=== PATIENT | male | born 1970 | race Caucasian/White ===

== ENCOUNTER 2024-01-28 10:56 | Day surgery (SDC) | payer OTHER, SELFPAY ==
[2024-01-28] VITALS (9 sets, daily range): BP systolic 127–143; BP diastolic 80–104; PULSE 77–114; RESP 14–18; TEMP 36.6–36.9; O2SAT 99–100
--- NOTE | ~2024-01-28 | CT_ITS ---
EXAMINATION: CT pelvis w con DATE: 01/28/2024 12:43 INDICATION: Left perirectal abscess. TECHNIQUE: Computed tomography (CT) of the pelvis was performed with 100 mL Omnipaque 350 intravenous contrast. Automated exposure control and iterative reconstruction technique were employed. The dose- length product was 700.97 mGy-cm. COMPARISON: None FINDINGS: There are cysts in the kidneys measuring up to 8.2 cm on the left. There are no dilated loo ps of bowel. The appendix is normal. There is diverticulosis of the colon without evidence of diverti culitis. There is a 4.7 x 2.6 x 5.6 cm left perianal abscess. There is calcified atherosclerosis of t he aorta and many of the other arteries. There are no pathologically enlarged lymph nodes. There is n o free intraperitoneal fluid. There is mild osteoarthritis of the hips. IMPRESSION: 1. 4.7 x 2.6 x 5.6 cm left perianal abscess. Reviewed, dictated and finalized at location A.
--- NOTE | 2024-01-28 11:18 | ED.SKABFB ---
HPI - Skin/Abscess/Foreign Bdy General Chief complaint: Skin/Abscess/Foreign Body <JOSELUIS Burks Last Filed: 01/28/24 14:32> Stated complaint: abcess to buttocks <JOSELUIS Burks Filed: 01/28/24 14:32> Time Seen by Provider: 01/28/24 11:11 <JOSELUIS Burks Last Filed: 01/28/24 14:32> Source: patient and old records reviewed <JOSELUIS Burks Filed: 01/28/24 14:32> Mode of arrival: ambulatory <JOSELUIS Burks Filed: 01/28/24 14:32> Limitations: no limitations <JOSELUIS Burks Filed: 01/28/24 14:32> History of Present Illness HPI narrative: Patient is a 53 y/o female who presents to the ED with c/o concern for perirectal abscess. Patient reports history of a left-sided perirectal abscess that required surgical I & D by Dr. Cabrera in 2017. Since Thursday, he reported feeling constipated. He tried taking laxatives, increasing fiber, and used an enema with some relief. He has since had several bowel movements, but began noticing an area of induration and tenderness to his left-sided perirectal region, which felt similar to his previous abscess. Has pain sitting down. Denies abdominal pain, nausea, vomiting, fevers, rectal bleeding, melena. <JOSELUIS Burks Last Filed: 01/28/24 14:32> Related Data Home medications: Home Medications Medication Instructions Recorded Confirmed amlodipine 5 mg tablet 5 mg PO DAILY 01/28/24 01/28/24 lisinopril 40 mg tablet 40 mg PO DAILY 01/28/24 01/28/24 sertraline 50 mg tablet 50 mg PO DAILY 01/28/24 01/28/24 <JOSELUIS Burks Last Filed: 01/28/24 14:32> Allergies/Adverse reactions: Allergies Allergy/AdvReac Type Severity Reaction Status Date / Time shellfish derived Allergy Swelling Verified 01/28/24 15:00 <Laura Paz PA-C - Last Filed: 01/28/24 14:32> Review of Systems Review of Systems: CONSTITUTIONAL: Denies fever, chills, or sweats. GASTROINTESTINAL: See HPI. GENITOURINARY: Denies dysuria or hematuria. <JOSELUIS Burks Last Filed: 01/28/24 14:32> All systems reviewed & are unremarkable except as noted in HPI and below <JOSELUIS Burks Last Filed: 01/28/24 14:32> [facility] Past Medical History Medical History: Medical History Anxiety GERD (gastroesophageal reflux disease) Hypertension Perirectal abscess 2017 <JOSELUIS Burks Last Filed: 01/28/24 14:32> Surgical History Surgical History: Surgical History History of incision and drainage Incision and drainage left perirectal abscess by Dr. Cabrera in 2017 <JOSELUIS Burks Last Filed: 01/28/24 14:32> Social History Social History: Social History Smoking status: Never smoker Alcohol intake: current <JOSELUIS Burks Last Filed: 01/28/24 14:32> Exam Narrative: GENERAL: Well appearing, obese with BMI of 31.1, non-toxic, in no acute distress. HEAD: Normocephalic, atraumatic. RESPIRATORY: Airway patent, respirations nonlabored. Clear to auscultation bilaterally, no rales, rhonchi, wheezing. CARDIOVASCULAR: Borderline tachycardic with regular rhythm without murmurs, rubs, or gallops. ABDOMINAL: Soft, no tenderness throughout abdomen, nondistended. Normoactive BS. RECTAL: Area of induration, erythema, tenderness to left sided perirectal region, in location of 9oclock in relation to anus. No significant palpable fluctuance, no drainage or bleeding. No large external hemorrhoids. MUSCULOSKELETAL: Moves all extremities. No gross deformities. SKIN: Warm, dry, normal color. NEURO: A&O X3. Speech clear. PSYCHIATRIC: Appropriate mood and affect. Normal interaction. <Laura Paz PA-C -
[2024-01-28 12:05] LABS: Basophils Percent Auto 0.2 % (0.2-1.2); Eosinophils Percent Auto 0.4 % (0-4.4); Hematocrit 46.3 % (42.0-52.0); Hemoglobin 15.5 g/dL (14.0-18.0); Immature Granulocyte Absolute 0.07 K/mm3 (0.00-0.031); Immature Granulocyte Percent A 0.7 % (0-0.5); Lymphocytes Absolute Auto 0.69 K/mm3 (0.9-3.2); Lymphocytes Percent Auto 7.3 % (18.3-44.2); Mean Corpuscular HGB Conc 33.5 g/dl (32-36); Mean Corpuscular Hemoglobin 31.4 pg (26-34); Mean Corpuscular Volume 93.9 fl (80-100); Monocytes Absolute Auto 0.8 K/mm3 (0.1-0.6); Monocytes Percent Auto 8.9 % (2.6-8.5); Neutrophils Absolute Auto 7.8 K/mm3 (1.3-6.7); Neutrophils Percent Auto 82.5 % (45.5-73.1); Platelet Count Result 171 k/mm3 (150-375); Red Blood Count 4.93 M/mm3 (4.6-6.20); Red Cell Distribution Width 12.3 % (11.5-14.5); White Blood Count 9.5 K/mm3 (4.5-10.0)
[2024-01-28 12:17] LABS: Alanine Aminotransferase 32 U/L (6-50); Albumin Level 4.4 g/dL (3.5-5.1); Alkaline Phosphatase 82 U/L (38-126); Anion Gap 5 mmol/L (4-12); Aspartate Amino Transferase 31 U/L (17-59); Bilirubin,Total 1.4 mg/dL (0.2-1.3); Blood Urea Nitrogen 7 mg/dL (9-20); Calcium 9.5 mg/dL (8.4-10.2); Carbon Dioxide 28 mmol/L (22-30); Chloride 100 mmol/L (98-107); Estimated CRCL calculation 131 ml/min; Estimated Glomerular Filt Rate > 60; Glucose 107 mg/dL (65-110); Lactic Acid Reflex 1.3 mmol/L (0.7-2.0); Sodium 133 mmol/L (137-145)
[2024-01-28] MEDS: PIPERACILLN/TAZ 3.375GM/NS50ML 3.375 GM/50 ML BAG IVPB (14:08)
--- NOTE | 2024-01-28 14:33 | PM.SD2 ---
Same Day Admit/Disch: [facility] History of Present Illness Chief complaint: Perianal abscess Narrative: Herberth Wei is a 53 year old male who presented to the ER with complaints of perirectal pain and swelling. He has a history of perirectal abscess with incision and drainage in the OR in [address] Cabrera. He has not had any issues since that time until now. He reports feeling constipated since Thursday. He tried taking laxatives and an enema, and was able to have multiple bowel movements. He following this, he started to notice some left-sided perirectal pain that progressively worsened. Yesterday, he began noticing some left-sided perirectal swelling as well. He was having pain with sitting. No fever or chills. No rectal drainage or bleeding that he had noticed. His symptoms felt similar to his previous perirectal abscess and he came into the ER for evaluation. Labs showed a normal WBC count with neutrophil predominance. Pelvis CT showed a 4.7 x 2.6 x 5.6 cm left perianal abscess. Our service was consulted by the ED physician and he is now seen in the ER. [facility] Past Medical History Medical History Anxiety GERD (gastroesophageal reflux disease) Hypertension Perirectal abscess 2016 Surgical History Surgical History History of incision and drainage Incision and drainage left perirectal abscess by Dr. Cabrera in 2017 Social History Social History Smoking status: Never smoker Alcohol intake: current Review of Systems Review of Systems All systems reviewed & are unremarkable except as noted in HPI and below Constitutional Constitutional: Reports no additional constitutional complaints, Denies chills, Denies fatigue and Denies fever(s) Eyes Eyes: Reports no additional eye complaints ENT Reports system reviewed and no additional complaints, except as documented and Denies dizziness Cardiovascular Cardiovascular: Reports no additional cardiovascular complaints, Denies chest pain and Denies leg edema Respiratory Respiratory: Reports no additional respiratory complaints, Denies cough and Denies dyspnea Gastrointestinal Gastrointestinal: Reports as per HPI, Reports no additional gastrointestinal complaints, Denies abdominal pain, Denies melena, Denies hematochezia, Denies diarrhea, Denies nausea, Denies vomiting and Reports other (perirectal pain and swelling) Genitourinary Genitourinary: Reports no additional male genitourinary complaints and Denies dysuria Musculoskeletal Musculoskeletal: Reports no additional musculoskeletal complaints, Denies abnormal gait and Denies joint swelling Integumentary/Breasts Skin/Breast: Reports system reviewed and no additional complaints, except as docu Neurologic Reports system reviewed and no additional complaints, except as documented, Denies headache(s), Denies focal weakness, Denies numbness and Denies tingling Exam Const: General: comfortable and no acute distress Nutritional Appearance: average body habitus Orientation/consciousness: patient oriented x3 HENMT: Head: normocephalic and atraumatic Ears: hearing grossly normal bilaterally Mouth: Yes moist mucous membranes Eyes: General: appearance normal, both eyes and all related structures Pupils: Equal, round and reactive pupils present Neck: Neck: normal visual inspection and full ROM Resp: Effort & Inspection: no respiratory distress Auscultation: clear to auscultation bilaterally Cardio: Rate: regular rate Rhythm: regular rhythm Heart sounds: S1 normal heart sound present and S2 normal heart sound present Peripheral pulses: Peripheral pulses 2+ throughout GI: Inspection: non-distended GI Palp: Yes Soft to palpation, No Tenderness to palpation present (GI), No Guarding due to palpation present (GI) and No Rebound tenderness present Percussion: Yes normal to percussion Auscultati
--- NOTE | 2024-01-28 15:44 | WPDANESEPPF ---
Anes - Initial Pre Proc Eval Procedure: Operation Date: 01/28/24 15:00 Proposed Procedures p Incision And Drainage Charu-Rectal Abscess - Ortiz Valladares MD Date/Time: 01/28/24 15:44 Surgeon: Ortiz Valladares MD Pre Op Diagnosis: abcess to buttocks Patient Data Age: 53 Gender: M Height: 1.83 m Weight: 104 kg Last Vital Signs Temp 98.1 F 01/28/24 14:55 Pulse 89 01/28/24 14:55 Resp 14 01/28/24 14:55 BP 143/93 H 01/28/24 14:55 Pulse Ox 100 01/28/24 14:55 O2 Del Method Room Air 01/28/24 14:55 Allergies Allergy/AdvReac Type Severity Reaction Status Date / Time shellfish derived Allergy Swelling Verified 01/28/24 15:00 Home Medications Medication Instructions Recorded Confirmed Type amlodipine 5 mg tablet 5 mg PO DAILY 01/28/24 01/28/24 History lisinopril 40 mg tablet 40 mg PO DAILY 01/28/24 01/28/24 History sertraline 50 mg tablet 50 mg PO DAILY 01/28/24 01/28/24 History Laboratory Tests 01/28/24 11:54 WBC 9.5 K/mm3 (4.5-10.0) RBC 4.93 M/mm3 (4.6-6.20) Hgb 15.5 g/dL (14.0-18.0) Hct 46.3 % (42.0-52.0) MCV 93.9 fl (80-100) MCH 31.4 pg (26-34) MCHC 33.5 g/dl (32-36) RDW 12.3 % (11.5-14.5) Plt Count 171 k/mm3 (150-375) MPV 9.0 fl (7.4-10.4) Immature Gran % (Auto) 0.7 H % (0-0.5) Neut % (Auto) 82.5 H % (45.5-73.1) Lymph % (Auto) 7.3 L % (18.3-44.2) [place] % (Auto) 8.9 H % (2.6-8.5) Eos % (Auto) 0.4 % (0-4.4) Baso % (Auto) 0.2 % (0.2-1.2) Lymph # (Auto) 0.69 L K/mm3 (0.9-3.2) [place] # (Auto) 0.8 H K/mm3 (0.1-0.6) Eos # (Auto) 0.0 K/mm3 (0-0.3) Baso # (Auto) 0.0 K/mm3 (0.0-0.1) Abs Immat Gran (auto) 0.07 H K/mm3 (0.00-0.031) Absolute Neuts (auto) 7.8 H K/mm3 (1.3-6.7) Absolute Nucleated RBC 0.000 K/mm3 (0.0-0.012) Nucleated RBC % 0.0 % (0.0-0.2) Sodium 133 L mmol/L (137-145) Potassium 4.0 mmol/L (3.4-5.0) Chloride 100 mmol/L (98-107) Carbon Dioxide 28 mmol/L (22-30) Anion Gap 5 mmol/L (4-12) BUN 7 L mg/dL (9-20) Creatinine 0.70 mg/dL (0.7-1.3) Estim Creat Clear Calc 131 ml/min Estimated GFR > 60 (59 - ) Glucose 107 mg/dL (65-110) Lactic Acid 1.3 mmol/L (0.7-2.0) Calcium 9.5 mg/dL (8.4-10.2) Total Bilirubin 1.4 H mg/dL (0.2-1.3) AST 31 U/L (17-59) ALT 32 U/L (6-50) Alkaline Phosphatase 82 U/L (38-126) Total Protein 8.0 g/dL (6.3-8.2) Albumin 4.4 g/dL (3.5-5.1) Patient hx anesthesia problems: none Family hx anesthesia problems: none Results Review: All pre-operative results and documents have been reviewed as part of the pre-operative evaluation. [facility] Past Medical History Medical History Anxiety GERD (gastroesophageal reflux disease) Hypertension Perirectal abscess 2017 Surgical History Surgical History History of incision and drainage Incision and drainage left perirectal abscess by Dr. Cabrera in 2017 Social History Social History Smoking status: Never smoker Alcohol intake: current Anes - Eval Final PreProcedure Day of Procedure 01/28/24 15:44 Patient weight: obese Heart: regular rate and rhythm Lungs: clear to auscultation Airway: Mallampati scale Neurological: alert and oriented Last oral intake: >/= 8 hours ASA classification: II Emergent: yes Anesthetic plan: delay Anesthesia type and monitoring: general and standard monitoring Other findings: HTN, pt took ACEI and CCB this am. Results Review: All pre-operative results and documents have been reviewed as part of the pre-operative evaluation. Informed Consent: The patient's anesthetic plan and its attendant risks and benefits were discussed with the patient/family/POA. Que
--- NOTE | 2024-01-28 15:54 | WPDHPUPDATE1 ---
History and Physical Update Update Date/Time: 01/28/24 15:54 History and Physical has been reviewed, including an updated exam of the patient. There are NO changes in the patient's condition. Risks, benefits, and alternatives have been discussed and questions answered. Patient agrees to proceed with procedure.
[2024-01-28] MEDS: LACTATED RINGERS 1,000 ML 30 ML IV CONT (16:45)
--- NOTE | 2024-01-28 16:59 | W.PM.PROC2 ---
Procedure Note - Detailed Date of Procedure 01/28/24 Pre-op Diagnosis Recurrent perirectal abscess Post-op Diagnosis Same Procedure Performed Incision and drainage complex perirectal abscess Surgeon Ortiz Valladares MD [employer] General Supervisor [place] [facility] Anesthesia General Indications Patient presented to the emergency room today with severe perianal pain and evidence of an abscess on the left side of the rectum. Looking back at old records, he had a left-sided deep perirectal abscess in 2017. His CT scan showed a very large deep abscess on the left side. He is taken to surgery now for incision and drainage. Findings The abscess was deep to the skin and by palpation there really was not much of a fluctuant collection to palpate. Once into the abscess, there was a large amount of dark brown purulent fluid with foul odor. I looked several times but could not find an internal opening. Description of Procedure Patient was taken to surgery and induced into general anesthesia. He was then turned prone and placed in prone hermelinda-knife position. The buttocks were taped apart. Prep and drape was carried out. I initially looked in the anal canal with 1st a small Hill-Sharp anoscope and then a medium Hill-Sharp anoscope. Rectal sphincter tone was increased. Despite looking specifically for an internal opening, none was found. I then used a syringe with a large-bore needle and aspirated over the area that was suspicious for abscess. Significant purulent fluid was aspirated. I then made a cruciate incision over this and used a curved clamp to dissect down to the abscess. The cavity was large and went proximal on the left side of the rectum. All the purulent fluid was suctioned away. I enlarged the opening enough that I could put my finger into the abscess cavity. I then replaced Hill-Sharp anoscope was in the rectum and again searched for an internal opening. I turned the probe back on itself and tried to probe for an internal opening. None was found. I irrigated the abscess cavity thoroughly with saline. I then placed an 18 Vietnamese mushroom catheter into the abscess cavity. It was sutured in place with a 2-0 silk suture. I cut off all but about 2 cm of the mushroom catheter protruding above the suture. Cautery was used for some skin and subcutaneous bleeders. We then dressed the wound with Xeroform gauze bulky fluffs and ABDs. Medipore tape and Promise panties were then placed. Patient was then returned to a supine position, awakened and extubated. He was taken to recovery in good condition. Estimated Blood Loss -5 Drains Yes (Mushroom catheter in left-sided abscess cavity) Packing No Pathology None sent Complications No immediate complications Condition Stable Disposition PACU [facility] Billing Surgery - Charge Forward: Surgery Billing (Incision and drainage recurrent complex perirectal abscess)
== END 2024-01-28 18:01 | disposition home or self-care (01) ==
LOC: ANHED 14:07 → ANHSURGERY 14:24
PROVIDERS: Emergency Provider Physician Assistant; Visit Provider Surgery
PROC: (CPT 46040; principal; 2024-01-28 15:00)
DX: K61.1 Rectal abscess (principal); E66.9 Obesity, unspecified; Z68.31 Body mass index [BMI] 31.0-31.9, adult
CPT/HCPCS: 46040; 36415; 72193; 80053; 83605; 85025; 96374; 99285; J0330; J1100; J2250; J2371; J2405; J2543; J2704; J3010; J7120; Q9967

== ENCOUNTER 2024-12-25 09:55 | Day surgery (SDC) | payer BC, SELFPAY ==
[2024-12-25] VITALS (9 sets, daily range): BP systolic 128–149; BP diastolic 85–96; PULSE 86–103; RESP 16–19; TEMP 36.5–37.1; O2SAT 95–100
[2024-12-25 11:43] LABS: Basophils Percent Auto 0.2 % (0.2-1.2); Eosinophils Percent Auto 0.5 % (0-4.4); Hematocrit 41.3 % (42.0-52.0); Hemoglobin 13.9 g/dL (14.0-18.0); Immature Granulocyte Absolute 0.02 K/mm3 (0.00-0.031); Immature Granulocyte Percent A 0.2 % (0-0.5); Immature Platelet Fraction Pct 1.8 % (0.9-11.2); Lymphocytes Percent Auto 4.7 % (18.3-44.2); Mean Corpuscular HGB Conc 33.7 g/dl (32-36); Mean Corpuscular Hemoglobin 30.9 pg (26-34); Mean Corpuscular Volume 91.8 fl (80-100); Mean Platelet Volume 9.2 fl (7.4-10.4); Monocytes Absolute Auto 0.9 K/mm3 (0.1-0.6); Neutrophils Absolute Auto 7.2 K/mm3 (1.3-6.7); Neutrophils Percent Auto 84.4 % (45.5-73.1); Platelet Count Result 127 k/mm3 (150-375); Red Cell Distribution Width 12.7 % (11.5-14.5); White Blood Count 8.5 K/mm3 (4.5-10.0)
[2024-12-25 11:54] LABS: Alanine Aminotransferase 33 U/L (6-50); Albumin Level 3.7 g/dL (3.5-5.1); Alkaline Phosphatase 85 U/L (38-126); Anion Gap 11 mmol/L (4-12); Aspartate Amino Transferase 31 U/L (17-59); Bilirubin,Total 1.2 mg/dL (0.2-1.3); Blood Urea Nitrogen 5 mg/dL (9-20); Calcium 8.7 mg/dL (8.4-10.2); Carbon Dioxide 23 mmol/L (22-30); Chloride 99 mmol/L (98-107); Estimated CRCL calculation 145 ml/min; Estimated Glomerular Filt Rate > 60; Glucose 93 mg/dL (65-110); Potassium 4.6 mmol/L (3.4-5.0); Sodium 133 mmol/L (137-145)
[2024-12-25] MEDS: LACTATED RINGERS 1,000 ML 30 ML IV CONT (12:24)
--- NOTE | 2024-12-25 12:46 | ED.SKABFB ---
HPI - Skin/Abscess/Foreign Bdy General Chief complaint: Skin/Abscess/Foreign Body Stated complaint: buttock problems Time Seen by Provider: 12/25/24 11:11 History of Present Illness HPI narrative: Patient is a 54-year-old male who presents ER with concerns for perirectal abscess. Had perirectal abscess in the past that was incised and drained and was followed by surgery. Started having discomfort 2 days ago. There is becoming increasingly tender and swollen. No drainage. No fevers or chills or sweats. Left of his rectum. Related Data Home Medications ?Medication ?Instructions ?Recorded ?Confirmed ?Last Taken ?Type amlodipine 5 mg tablet 5 mg PO DAILY 01/28/24 12/25/24 01/28/24 History lisinopril 40 mg tablet 40 mg PO DAILY 01/28/24 12/25/24 01/28/24 History sertraline 50 mg tablet 50 mg PO DAILY 01/28/24 12/25/24 01/28/24 History Allergies Allergy/AdvReac Type Severity Reaction Status Date / Time shellfish derived Allergy Swelling Verified 12/25/24 14:13 Review of Systems Review of Systems: All systems reviewed & are unremarkable except as noted in HPI and below Constitutional: Constitutional: Reports no additional constitutional complaints Cardiovascular: Cardiovascular: Reports no additional cardiovascular complaints Respiratory: Respiratory: Reports no additional respiratory complaints Gastrointestinal: Gastrointestinal: Reports no additional gastrointestinal complaints PMFSH Past Medical History Medical History GERD (gastroesophageal reflux disease) Anxiety Hypertension Perirectal abscess 2017 Surgical History Surgical History History of incision and drainage Incision and drainage left perirectal abscess by Dr. Cabrera in 2017 Incision and drainage complex perirectal abscess by Dr. Iverson 01/28/24 Social History Social History Smoking status: Never smoker Alcohol intake: current Exam Narrative: GENERAL: Well-appearing, well-nourished, and in no acute distress. HEAD: Normocephalic, atraumatic. ENT: Mucous membranes moist. CHEST: Clear to auscultation. No respiratory distress. HEART: Regular rate and rhythm. Normal peripheral pulses. ABDOMEN: Soft, nontender, nondistended. Lying in the right lateral decubitus position at the 12 o'clock position there is swelling and erythema consistent with developing abscess, there are areas of fluctuance but also areas of firm induration that may be scar tissue. EXTREMITIES: Normal range of motion. No edema. SKIN: Warm, dry, no rash. NEURO: Alert and oriented x3. PSYCH: Normal mood and affect. Course Course Emergency Course: Discussed case with Dr. Valladares. Patient has large deep space abscess. He will go to the OR for drainage. Will start IV Zosyn. Patient has been NPO since yesterday evening with the exception of a half cup of water earlier today. Vital Signs Vital signs: Vital Signs Temperature 97.7 F 12/25/24 09:57 Pulse Rate 103 H 12/25/24 09:57 Respiratory Rate 16 12/25/24 09:57 Blood Pressure 149/89 H 12/25/24 09:57 Pulse Oximetry 98 12/25/24 09:57 Oxygen Delivery Room Air 12/25/24 09:57 Temperature 98.1 F 12/25/24 16:58 Pulse Rate 86 12/25/24 17:58 Respiratory Rate 16 12/25/24 17:58 Blood Pressure 142/87 H 12/25/24 17:58 Pulse Oximetry 95 12/25/24 16:55 Oxygen Delivery Room Air 12/25/24 16:55 MDM - Skin/Abscess/Foreign Bdy Lab Data 12/25/24 11:37 12/25/24 11:37 Labs: Lab Results 12/25/24 Range/Units 11:37 WBC 8.5 (4.5-10.0) K/mm3 RBC 4.50 L (4.6-6.20) M/mm3 Hgb 13.9 L (14.0-18.0) g/dL Hct 41.3 L (42.0-52.0) % MCV 91.8 (80-100) fl MCH 30.9 (26-34) pg MCHC 33.7 (32-36) g/dl RDW 12.7 (11.5-14.5) % Plt Count 127 L (150-375) k/mm3 MPV 9.2 (7.4-10.4) fl Immature Gran % (Auto) 0.2 (0-0.5) % Neut % (Auto) 84.4 H (45.5-73.1) % Lymph % (Auto) 4.7 L (18.3-44.2) % [place] % (Auto) 10.0 H (2.6-8.5) % Eos % (Auto) 0.5 (0-4.4) % Baso % (Auto) 0.2 (0.2-1.2) % Lymph # (Auto) 0.40 L (0.9-3.2) K/mm3 [place] # (Auto) 0.9 H (0.1-0.6) K/mm3 Eos # (Auto) 0.0 (0-0.3) K/mm3 Baso # (Auto) 0.0 (0.0-0.1) K/mm3 Abs Immat Gran (auto) 0.02 (0.00-0.031) K/mm3 Absolute Neuts (auto) 7.2 H (1.3-6.7) K/mm3 Absolute Nucleated RBC 0.000 (0.0-0.012) K/mm3 Nucleated RBC % 0.0 (0.0-0.2) % % Immature Plt Fraction 1.8 (0.9-11.2) % Sodium 133 L (137-145) mmol/L Potassium 4.6 (3.4-5.0) mmol/L Chloride 99 (98-107) mmol/L Carbon Dioxide 23 (22-30) mmol/L Anion Gap 11 (4-12) mmol/L BUN 5 L (9-20) mg/dL Creatinine 0.62 L (0.7-1.3) mg/dL Estim Creat Clear Calc 145 ml/min Estimated GFR > 60 (59 - ) Glucose 93 (65-110) mg/dL Calcium 8.7 (8.4-10.2) mg/dL Total Bilirubin 1.2 (0.2-1.3) mg/dL AST 31 (17-59) U/L ALT 33 (6-50) U/L Alkaline Phosphatase 85 (38-126) U/L Total Protein 7.0 (6.3-8.2) g/dL Albumin 3.7 (3.5-5.1) g/dL Imaging Data Radiologist's impression: ITS Impressions Pelvis CT 12/25/24 13:21 Impression: Large left-sided perirectal abscess, as detailed above. Discharge Plan Discharge Clinical Impression: Perirectal abscess Patient Disposition: Still a Patient Condition: Stable
--- NOTE | 2024-12-25 14:09 | PM.SD2 ---
Same Day Admit/Disch: HPI History of Present Illness Chief complaint: Recurrent perirectal abscess Narrative: Herberth Wei is a 54 year old male who has had a left-sided perirectal abscess drained in 2016 and again last January of 2024. At the drainage procedure in 2023, an internal opening was sought at the time of surgery but not found. Patient came back to the office to have his mushroom catheter removed, but then did not follow up further. He now has a 2 day history of left-sided perirectal pain associated with swelling. It reminds him of previous abscesses. He came to the emergency room. Exam shows a recurrent left-sided abscess. CT scan shows an even bigger abscess than last January-now 7 x 7 cm. He is taken to surgery now for incision and drainage of this twice recurrent left-sided perirectal abscess. He has a normal white blood cell count and is afebrile. [facility] Past Medical History Medical History GERD (gastroesophageal reflux disease) Anxiety Hypertension Perirectal abscess 2016 Surgical History Surgical History History of incision and drainage Incision and drainage left perirectal abscess by Dr. Cabrera in 2017 Incision and drainage complex perirectal abscess by Dr. Iverson 01/28/24 Social History Social History Smoking status: Never smoker Alcohol intake: current Same Day Admit/Disch: Med Pre-admit Medications Home Medications ?Medication ?Instructions ?Recorded ?Confirmed ?Type amlodipine 5 mg tablet 5 mg PO DAILY 01/28/24 12/25/24 History lisinopril 40 mg tablet 40 mg PO DAILY 01/28/24 12/25/24 History sertraline 50 mg tablet 50 mg PO DAILY 01/28/24 12/25/24 History ketorolac 10 mg tablet 10 mg PO Q6H 4 days #16 tabs 12/25/24 Rx oxycodone-acetaminophen 5 mg-325 0.5 - 1 tablet PO Q4H PRN pain #10 12/25/24 Rx mg tablet (Percocet) tabs Review of Systems Review of Systems All systems reviewed & are unremarkable except as noted in HPI and below (HPI) Exam Const: General: comfortable, no acute distress, alert and awake HENMT: Head: normocephalic and atraumatic Mouth: Yes Normal oral and palatal mucosa present Eyes: Conjunctivae: conjunctivae normal Pupils: Equal, round and reactive pupils present EOM: EOMs intact bilaterally Neck: Neck: normal visual inspection, no lymphadenopathy and nontender Resp: Effort & Inspection: normal respiratory effort Auscultation: clear to auscultation bilaterally Cardio: Rate: regular rate Rhythm: regular rhythm Heart sounds: no gallops, no murmurs and no rubs GI: Inspection: non-distended GI Palp: Yes Soft to palpation, No Tenderness to palpation present (GI), No Hepatomegaly present and No Splenomegaly present Rectal Exam: abscess (Scarring and fluctuant left-sided abscess), No Fistula present (GI) (Not appreciated) and tenderness Skin: Lesions: no lesions Rashes: no rashes Neuro: General: no focal motor deficits and CN's II-XI intact bilaterally Cranial nerves: Yes Equal, round and reactive pupils present, Yes Bilaterally intact EOM present, Yes facial symmetry and Yes Midline tongue present Speech: normal speech Motor exam (neuro): 5/5 motor strength present throughout and Motor abnormalities not present Extrem: General: no clubbing, cyanosis or edema and edema Psych: Affect: normal affect Thought process: Normal thought process present Insight: Good insight present (Psych) DS: Data Data Completed and Pending Labs on day of discharge: Labs from last 24 hours 12/25/24 11:37 WBC 8.5 RBC 4.50 L Hgb 13.9 L Hct 41.3 L MCV 91.8 MCH 30.9 MCHC 33.7 RDW 12.7 Plt Count 127 L MPV 9.2 Immature Gran % (Auto) 0.2 Neut % (Auto) 84.4 H Lymph % (Auto) 4.7 L Weakley % (Auto) 10.0 H Eos % (Auto) 0.5 Baso % (Auto) 0.2 Lymph # (Auto) 0.40 L Weakley # (Auto) 0.9 H Eos # (Auto) 0.0 Baso # (Auto) 0.0 Abs Immat Gran (auto) 0.02 Absolute Neuts (auto) 7.2 H Absolute Nucleated RBC 0.000 Nucleated RBC % 0.0 % Immature Plt Fraction 1.8 Sodium 133 L Potassium 4.6 Chloride 99 Carbon Dioxide 23 Anion Gap 11 BUN 5 L Creatinine 0.62 L Estim Creat Clear Calc 145 Estimated GFR > 60 Glucose 93 Calcium 8.7 Total Bilirubin 1.2 AST 31 ALT 33 Alkaline Phosphatase 85 Total Protein 7.0 Albumin 3.7 DS: Summary Time Spent with Patient Time attestation: Total time spent providing and/or coordinating discharge services: DS: Admitting Diagnosis Discharge Date 12/25/2024 Admitting Diagnosis Recurrent left-sided perirectal abscess-suspect patient has a fistula but it may be higher in the rectum as this was looked for on his last visit and none was was found. Will proceed with incision and drainage again. Will a good look will again look for an internal opening. Management will include drainage and possibly another mushroom catheter or a seton if fistula can be found. Essential hypertension DS: Discharge Diagnosis Discharge Diagnosis (1) Supralevator abscess: Code(s): K61.5 - Supralevator abscess Status: Acute Assessment and Plan: Perirectal abscess drained and seton placed. Abscess was either supralevator or extra sphincteric. Internal opening was proximal to the sphincter complex. Discharge Plan Discharge Patient Disposition: Home, Self-Care Discharge Instructions: Discharge Instructions for Anorectal Surgery Dr. Valladares 1. May discharge from Outpatient Surgery area or Surgical Floor when stable per protocol. 2. Activity: Remove dressing and start Sitz baths in a.m. following surgery. Once at home, all patients should take 10-20 minute Sitz baths at least two times per day and as needed after each bowel movement. Rest around the house for the next 1-2 days, taking frequent walks. No driving for 2-3 days or while taking narcotic pain medications. 3. Diet: Regular diet with 6-8 glasses of water per day. Eat plenty of fruits and vegetables. 4. Medications: ? Resume all home medications. ? Percocet 5/325 0.5 PO q 4 hours as needed for moderate pain. ? Percocet 5/325 1 PO q 6 hours as needed for severe pain. ? Toradol 10 mg PO q 6 hours as needed for moderate pain. ? Acetaminophen 650 mg PO q 6 hours as needed for mild pain. Prescriptions for the above medications will be provided at the time of discharge or they can be bought [id number]. 5. Follow-up: call office for appointment in 2 weeks 6. Call office if: ? Sudden increase in pain, swelling or incisional drainage or bleeding occurs. ? Fever > 101 degrees F. ? Nausea and vomiting occur. ? Inability to urinate. 7. Other orders: Revised: 10/08 Patient Language: Trinidadian Stand Alone Forms: General Discharge Instructions Follow-up/Referrals: Ortiz Valladares MD [Physician] - 2 Weeks Discharge Medications: New ketorolac 10 mg tablet 10 mg PO Q6H 4 Days Qty: 16 0RF oxycodone-acetaminophen [Percocet] 5-325 mg tablet 0.5 - 1 tablet PO Q4H PRN (Reason: pain) Qty: 10 0RF Continued amlodipine 5 mg tablet 5 mg PO DAILY lisinopril 40 mg tablet 40 mg PO DAILY sertraline 50 mg tablet 50 mg PO DAILY
[2024-12-25] MEDS: PIPERACILLN/TAZ 3.375GM/NS50ML 3.375 GM/50 ML BAG IVPB (14:10)
--- NOTE | 2024-12-25 14:18 | WPDHPUPDATE1 ---
History and Physical Update Update Date/Time: 12/25/24 14:18 History and Physical has been reviewed, including an updated exam of the patient. There are NO changes in the patient's condition. Risks, benefits, and alternatives have been discussed and questions answered. Patient agrees to proceed with procedure.
--- NOTE | 2024-12-25 15:04 | WPDANESEPPF ---
Anes - Initial Pre Proc Eval Procedure: Operation Date: 12/25/24 15:00 Proposed Procedures p I&D Charu-Rectal Abscess - Ortiz Valladares MD Date/Time: 12/25/24 15:04 Pre Op Diagnosis: Recurrent perirectal abscess Patient Data Age: 54 Gender: M Height: 1.83 m Weight: 103.6 kg Last Vital Signs Temp 97.7 F 12/25/24 09:57 Pulse 99 12/25/24 14:12 Resp 19 12/25/24 14:12 BP 145/89 H 12/25/24 14:12 Pulse Ox 98 12/25/24 14:12 O2 Del Method Room Air 12/25/24 09:57 Allergies Allergy/AdvReac Type Severity Reaction Status Date / Time shellfish derived Allergy Swelling Verified 12/25/24 14:13 Home Medications ?Medication ?Instructions ?Recorded ?Confirmed ?Type amlodipine 5 mg tablet 5 mg PO DAILY 01/28/24 12/25/24 History lisinopril 40 mg tablet 40 mg PO DAILY 01/28/24 12/25/24 History sertraline 50 mg tablet 50 mg PO DAILY 01/28/24 12/25/24 History Laboratory Tests 12/25/24 11:37 WBC 8.5 K/mm3 (4.5-10.0) RBC 4.50 L M/mm3 (4.6-6.20) Hgb 13.9 L g/dL (14.0-18.0) Hct 41.3 L % (42.0-52.0) MCV 91.8 fl (80-100) MCH 30.9 pg (26-34) MCHC 33.7 g/dl (32-36) RDW 12.7 % (11.5-14.5) Plt Count 127 L k/mm3 (150-375) MPV 9.2 fl (7.4-10.4) Immature Gran % (Auto) 0.2 % (0-0.5) Neut % (Auto) 84.4 H % (45.5-73.1) Lymph % (Auto) 4.7 L % (18.3-44.2) [place] % (Auto) 10.0 H % (2.6-8.5) Eos % (Auto) 0.5 % (0-4.4) Baso % (Auto) 0.2 % (0.2-1.2) Lymph # (Auto) 0.40 L K/mm3 (0.9-3.2) G[place] # (Auto) 0.9 H K/mm3 (0.1-0.6) Eos # (Auto) 0.0 K/mm3 (0-0.3) Baso # (Auto) 0.0 K/mm3 (0.0-0.1) Abs Immat Gran (auto) 0.02 K/mm3 (0.00-0.031) Absolute Neuts (auto) 7.2 H K/mm3 (1.3-6.7) Absolute Nucleated RBC 0.000 K/mm3 (0.0-0.012) Nucleated RBC % 0.0 % (0.0-0.2) % Immature Plt Fraction 1.8 % (0.9-11.2) Sodium 133 L mmol/L (137-145) Potassium 4.6 mmol/L (3.4-5.0) Chloride 99 mmol/L (98-107) Carbon Dioxide 23 mmol/L (22-30) Anion Gap 11 mmol/L (4-12) BUN 5 L mg/dL (9-20) Creatinine 0.62 L mg/dL (0.7-1.3) Estim Creat Clear Calc 145 ml/min Estimated GFR > 60 (59 - ) Glucose 93 mg/dL (65-110) Calcium 8.7 mg/dL (8.4-10.2) Total Bilirubin 1.2 mg/dL (0.2-1.3) AST 31 U/L (17-59) ALT 33 U/L (6-50) Alkaline Phosphatase 85 U/L (38-126) Total Protein 7.0 g/dL (6.3-8.2) Albumin 3.7 g/dL (3.5-5.1) Patient hx anesthesia problems: none Family hx anesthesia problems: none Results Review: All pre-operative results and documents have been reviewed as part of the pre-operative evaluation. [facility] Past Medical History Medical History GERD (gastroesophageal reflux disease) Anxiety Hypertension Perirectal abscess 2017 Surgical History Surgical History History of incision and drainage Incision and drainage left perirectal abscess by Dr. Cabrera in 2017 Incision and drainage complex perirectal abscess by Dr. Iverson 01/28/24 Social History Social History Smoking status: Never smoker Alcohol intake: current Anes - Eval Final PreProcedure Day of Procedure 12/25/24 15:04 Patient weight: obese Lungs: normal air movement Airway: Mallampati scale class 1 Neurological: alert and oriented Last oral intake: >/= 8 hours ASA classification: II Emergent: yes Anesthetic plan: proceed Anesthesia type and monitoring: general ETT and standard monitoring Results Review: All pre-operative results and documents have been reviewed as part of the pre-operative evaluation. HTN, BMI 31, suspect KYRA but never been formally tested. Informed Consent: The patient's anesthetic plan and its attendant risks and benefits were discussed with the patient/family/POA. Questions were solicited and answers provided to the satisfaction of the patient/family/POA.
--- NOTE | 2024-12-25 16:30 | SUR.OPER ---
specimen given to Priscilla
[2024-12-25] MEDS: HYDROmorphone HCL INJ (*CRX) 1 MG/ML SYR 0.25 MG IV PUSH ×2 (16:35→16:40)
--- NOTE | 2024-12-25 16:36 | W.PM.PROC2 ---
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 His last occurrence of this was in January of 2024 and a very deep elongated abscess was noted at that time but no internal opening. He presents at present with rectal pain and swelling as well as CT scan evidence of a recurrent 7 x 7 cm perirectal abscess. Findings Abscess was very similar to its appearance 11 months ago. It channeled proximal adjacent to the rectum. I was able to find an internal opening proximal to the sphincter complex and passed a seton through the fistula. Description of Procedure Patient was taken to surgery and induced into general anesthesia. He was then placed in prone hermelinda-knife position. The buttocks were taped apart. Prep and drape was carried out. The skin was swollen and fluctuant on the left side consistent with perirectal abscess and similar to previous presentations. I initially placed a Hill-Sharp anoscope and with gentle palpation of the fluctuant area looked for purulent drainage in the area of the dentate line. None was seen. I then created a cruciate incision over the fluctuant area of the abscess. Cultures were taken for aerobes anaerobes and Gram stain. There was large amount of purulent fluid. I enlarged the cruciate incision such that a suction could be passed into the abscess cavity. I then was able to pass a finger into the abscess cavity and it proceeded proximally and appeared to be lateral to the sphincter mechanism but then connected just proximal to the sphincter complex. I then used a probe and after considerable effort found the opening of the internal ring. I initially tried to tie his suture around the into the probe and passed that through the fistula tract. This was unsuccessful. I then passed a longer clamp alongside the probed such that it came out through the internal ring. I was then able to pass the end of of red vessel loop in to the clamp and bring it through the fistula tract. I tied the red vessel loop to itself and cut the ends off. This left an encirclement with the red vessel loop in the fistula. There was no further purulent drainage and no bleeding. We dressed the rectal area with Xeroform gauze, fluffs and Medipore tape. Patient was returned to a supine position, awakened and taken to recovery in good condition. Sponge and needle counts were correct x2. Estimated Blood Loss -5 Drains Yes (Seton) Packing No Pathology Other (Cultures only) Complications None Condition Stable Disposition PACU [facility] Billing Surgery - Charge Forward: Surgery Billing (Incision and drainage complex perirectal abscess, treatment extra-sphincteric fistula with seton placement)
== END 2024-12-25 18:00 | disposition home or self-care (01) ==
LOC: ANHED 14:13 → ANHSURGERY 15:04
PROVIDERS: Emergency Provider Emergency Medicine; PCP Family Medicine; Visit Provider Surgery
PROC: (CPT 46040; principal; 2024-12-25 15:00)
DX: K61.5 Supralevator abscess (principal); E66.9 Obesity, unspecified; Z68.31 Body mass index [BMI] 31.0-31.9, adult
CPT/HCPCS: 46020; 36415; 72193; 80053; 85025; 85055; 87070; 87075; 87205; 96365; 96375; 99285; J1100; J1171; J1596; J1885; J2003; J2250; J2371; J2405; J2543; J2704; J3010; J7120; Q9967